=== PATIENT | male | born 1995 | race Caucasian/White ===

== ENCOUNTER 2018-07-05 14:14 | Emergency (ER) | payer BC ==
[2018-07-05 14:29] VITALS: BP 121/77
[2018-07-05] MEDS ORDERED: Fluorescein Sodium TOPICAL* 1 MG TEST STRIP OPHTHALMIC ONE (14:40)
--- NOTE | 2018-07-05 14:41 | UC ---
Eye Complaint HPI - HPI Summary HPI Summary: 3 day history of mild light sensitivity and watery eye drainage, without a history of headache, diplopia, visual blurring. No recall of foreign body but does work in a [employer] environment, wears protective eye wear. No hx of allergies, no exposure to toxic materials. Does not wear contact lenses, neg FH of iritis Wears glasses for distance; today's check was done without his glasses. - History of Current Complaint Chief Complaint: UCEye Stated Complaint: EYE ISSUE Time Seen by Provider: 07/05/18 14:33 Hx Obtained From: Patient Onset/Duration: Gradual Onset, Lasting Days - 3 Timing: Constant Severity Initially: Mild Severity Currently: Moderate Pain Intensity: 3 Character: Dull Aggravating Factor(s): Light Alleviating Factor(s): Darkness Associated Signs And Symptoms: Positive: Photophobia, Drainage (Clear) - mild - Risk Factors Penetrating Injury Risk Factor: Negative Globe Rupture Risk Factors: Negative Acute Glaucoma Risk Factors: Negative Optic Artery Occlusion Risk Factors: Negative - Allergies/Home Medications Allergies/Adverse Reactions: Allergies Allergy/AdvReac Type Severity Reaction Status Date / Time No Known Allergies Allergy Verified 07/05/18 14:28 Home Medications: Home Medications Levothyroxine TAB* [Synthroid TAB*] 75 mcg PO 0800 07/05/18 [History Confirmed 07/05/18] lamoTRIgine [Lamictal] 200 mg PO DAILY WITH MEAL 07/05/18 [History Confirmed ] PMH/Surg Hx/FS Hx/Imm Hx Endocrine History: Hypothyroidism Psychological History: Bipolar Disorder - Surgical History Surgical History: None - Family History Known Family History: Positive: Other - No FH of iritis or eye disease - Social History Occupation: Employed Full-time Lives: Alone Alcohol Use: Rare Substance Use Type: Marijuana Smoking Status (MU): Heavy Every Day Tobacco Smoker Type: Cigarettes Review of Systems All Other Systems Reviewed And Are Negative: Yes Constitutional: Positive: Negative Skin: Positive: Negative Eyes: Positive: Eye Redness, Photophobia ENT: Positive: Negative Respiratory: Positive: Negative Cardiovascular: Positive: Negative Gastrointestinal: Positive: Negative Genitourinary: Positive: Negative Motor: Positive: Negative Neurovascular: Positive: Negative, Other - no headache Musculoskeletal: Positive: Negative Neurological: Negative: Headache Psychological: Positive: Negative Is Patient Immunocompromised?: No Physical Exam Triage Information Reviewed: Yes Appearance: Well-Appearing, Pain Distress - moderately uncomfortable Vital Signs: Initial Vital Signs Temp 100.0 F 07/05/18 14:23 Pulse 67 07/05/18 14:23 Resp 18 07/05/18 14:23 BP 121/77 07/05/18 14:23 Pulse Ox 99 07/05/18 14:23 Eye Exam: Other - mid sized pupils, freely reactive, mild photophobia. No uptake of fluoroscein. Lid flipped and no foreign body seen Eyes: Positive: Conjunctiva Inflamed ENT: Positive: Pharynx normal Neck: Positive: Supple, Nontender, No Lymphadenopathy Respiratory: Positive: Lungs clear Cardiovascular: Positive: RRR, No Murmur Skin Exam: Normal Eye Complaint Course/Dx - Course Course Of Treatment: ketorolac drops to ease eye irritation. - Differential Dx/Diagnosis Differential Diagnosis/HQI/PQRI: Conjunctivitis, Foreign Body, Uveitis Provider Diagnosis: Irritation of eye Discharge - Sign-Out/Discharge Documenting (check all that apply): Patient Departure All imaging exams completed and their final reports reviewed: No Studies - Discharge Plan Condition: Stable Disposition: HOME Patient Education Materials: Eye Foreign Body (ED) Referrals: No Primary Care Phys,NOPCP [Primary Care Provider] - Luis Grier MD [Medical Doctor] - Additional Instructions: It is most likely that your eye has been irritated by some grit, but there is no evidence of a corneal abrasion. If the irritation persists after the use of compresses and drops, I would like you to schedule a visit with Dr. Grier. Use ketorolac (Zaditor) eye drops 2 drosp every 4 hours today, after compressing with a cool cloth. The irritation should improve quickly, and I suggest follow up with Dr. Grier if it does not. - Billing Disposition and Condition Condition: STABLE Disposition: Home
== END 2018-07-05 15:05 | disposition home or self-care (01) ==
LOC: UCEAST 14:14
DX: H57.89 Other specified disorders of eye and adnexa (principal); E03.9 Hypothyroidism, unspecified; F31.9 Bipolar disorder, unspecified; F17.210 Nicotine dependence, cigarettes, uncomplicated
CPT/HCPCS: 99202; A9270-GY; G0463